=== PATIENT | male | born 1965 | race Caucasian/White ===

== ENCOUNTER 2024-12-07 08:25 | Emergency (ER) | payer MEDICAID ==
[~2024-12-07] VITALS: Ht 165.1 cm; Wt 86.0 kg
[2024-12-07 09:02] LABS: Urine Bacteria None Seen /hpf (None Seen)
[2024-12-07 09:18] LABS: Urine Blood 3+ /uL (Negative); Urine Budding Yeast MODERATE /hpf (None Seen); Urine Clarity Turbid (Clear); Urine Color Yellow (Yellow); Urine Mucus FEW (None Seen); Urine Protein, UAD 1+ (Negative); Urine Specific Gravity 1.028 (1.001-1.035); Urine Squamous Epithelial Cell FEW /hpf (<5); Urine Urobilinogen Normal (Negative); Urine WBC 17 /HPF (0-3); Urine pH 5.5 (5.0-9.0)
[2024-12-07 09:22] LABS: Basophils # (auto) 0.1 10 ^3/uL (0-0.2); Monocytes % (auto) 9.8 % (0.0-12.0); Nucleated Red Blood Cells % 0.1 %
--- NOTE | 2024-12-07 09:22 | DVH ---
Procedure: XY CHEST PORTABLE 12/07/2024 09:10 AM Indication: chest pain Comparison: None TECHNIQUE: XY CHEST PORTABLE FINDINGS: Medical devices: None. Cardiomediastinal: The heart is normal in size. Pulmonary vasculature is within normal limits. Athero sclerotic calcification of the aortic arch noted. Lungs: No focal pulmonary opacity is seen. The costophrenic angles are clear. No pneumothorax. Bones/soft tissues: No acute abnormality is noted. IMPRESSION: 1. No acute cardiopulmonary disease.
[2024-12-07 09:24] LABS: Basophils % (auto) 1.2 % (0.0-2.0); Eosinophils # (auto) 0.4 10 ^3/uL (0-0.8); Eosinophils % (auto) 3.9 % (0.0-7.0); Hematocrit 32.9 % (41.0-53.0); Hemoglobin 9.9 g/dL (13.5-17.5); Lymphocytes # (auto) 2.7 10 ^3/uL (0.4-5.4); Lymphocytes % (auto) 27.7 % (10.0-50.0); Mean Corpuscular Hemoglobin 17.6 pg (28.0-32.0); Mean Corpuscular Volume 58.5 fL (80.0-100.0); Monocytes # (auto) 0.9 10 ^3/uL (0-1.3); Neutrophils # (auto) 5.5 10 ^3/uL (1.6-8.6); Neutrophils % (auto) 57.4 % (37.0-80.0); Platelet Count (auto) 296 10^3/uL (140-450); Red Blood Cells 5.63 10^6/uL (4.5-5.90); Red Cell Distribution Width 19.7 % (11.8-14.3); White Blood Cell 9.6 10^3/uL (4.4-10.8)
--- NOTE | 2024-12-07 09:36 | ED.PDOC ---
History of Present Illness HPI Comments 59 y/o M, with a history of current umbilical hernia, Hepatitis C, and obesity, presents with c/o non-radiating left-upper and lower quadrant pain, headache, bilateral sclera yellowing, constipation, and generalized weakness. This in an ongoing issue acutely worse today. Patient is a poor historian and endorses on having pain for the past year and coming, today, due to additional onset of remaining symptoms, this morning, along with his friend, whom he claims to be a "nurse," recommended him on being checked out. He comments on laying on his left-side relieving pain and having no recent injuries, strenuous activities, spoiled food, travel, or other relevant information at time of assessment. Patient denies having any nausea, vomiting, fever, chills, or other associated symptoms or modifiers at this time. Chief Complaint: Abdominal Pain Time Seen by MD: 08:50 Primary Care Provider: DENIES Reviewed Notes: Nurses Notes, Medications, Allergies Allergies: Coded Allergies: NO KNOWN ALLERGIES (Unverified , 12/07/24) Information Source: Patient Mode of Arrival: Ambulatory Severity: Moderate Timing: Months Duration: Since onset Prehospital treatment: None Past Medical History PAST MEDICAL HISTORY: Liver (Hepatitis C) Past Medical History (Other): current umbilical hernia Surgical History: Denies all surgeries Family History Family History: Unknown Social History Smoker: Non-Smoker Alcohol: Denies ETOH Use Drugs: Denies Drug Use Lives In: Home EENTM: reports: others (bilateral eye sclera yellowing ) Gastrointestinal: reports: abdominal pain (left-sided ) Neurological: reports: headache, weakness All Other Systems: Reviewed and Negative (negative unless otherwise stated above or in HPI) Physical Exam General Appearance: No Apparent Distress, Obese HEENT: Normal ENT Inspection, Pharynx Normal, TMs Normal Neck: Full Range of Motion, Non-Tender, Normal, Normal Inspection Respiratory: Chest Non-Tender, Lungs Clear, No Accessory Muscle Use, No Respiratory Distress, Normal Breath Sounds Cardiovascular: No Edema, No JVD, No Murmur, No Gallop, Normal Peripheral Pulses, Regular Rate/Rhythm Breast Exam: Deferred Gastrointestinal: LLQ, LUQ, No Organomegaly, No Pulsatile Mass, Normal Bowel Sounds, Soft, Tenderness (left-sided upper and lower quadrant tenderness, no CVA percussion) Genitalia: Deferred Pelvic: Deferred Rectal: Deferred Extremities: No calf tenderness, Normal capillary refill, Normal inspection, Normal range of motion, Non-tender, No pedal edema Musculoskeletal : Apperance: Normal Neurologic: Alert, fryer line helper II-XII nml as Tested, No Motor Deficits, Normal Affect, Normal Mood, No Sensory Deficits Cerebellar Function: Normal Reflexes: Normal Skin: Dry, Normal Color, Warm Lymphatic: No Adenopathy Was a procedure done? Was a procedure done?: No EKG EKG : Pulse Rate (adult): 90 [place]: Normal Cardiac Rhythm: NSR Block: None Hypertrophy: None ST: Normal Differential Dx Considerations may include: constipation, viral syndrome, spoiled food, gastritis, gastroenteritis, electrolyte imbalance, acute abdomen X-Ray, Labs, Meds, VS Vital Signs Date Time Temp Pulse Resp B/P (MAP) Pulse Ox O2 Delivery O2 Flow Rate FiO2 12/07/24 09:36 90 12/07/24 08:45 90 12/07/24 08:38 97.4 89 18 159/105 (123) 100 Lab Test 12/07/24 09:11 12/07/24 08:30 Range/Units White Blood Count 9.6 4.4-10.8 10^3/uL Red Blood Count 5.63 4.5-5.90 10^6/uL Hemoglobin 9.9 L 13.5-17.5 g/dL Hematocrit 32.9 L 41.0-53.0 % Mean Corpuscular Volume 58.5 L 80.0-100.0 fL Mean Corpuscular Hemoglobin 17.6 L 28.0-32.0 pg Mean Corpuscular Hemoglobin Concent 30.0 L 32.0-36.0 g/dL Red Cell Distribution Width 19.7 H 11.8-14.3 % Platelet Count 296 140-450 10^3/uL Mean Platelet Volume 9.0 6.9-10.8 fL Neutrophils (%) (Auto) 57.4 37.0-80.0 % Lymphocytes (%) (Auto) 27.7 10.0-50.0 % Monocytes (%) (Auto) 9.8 0.0-12.0 % Eosinophils (%) (Auto) 3.9 0.0-7.0 % Basophils (%) (Auto) 1.2 0.0-2.0 % Neutrophils # (Auto) 5.5 1.6-8.6 10 ^3/uL Lymphocytes # (Auto) 2.7 0.4-5.4 10 ^3/uL Monocytes # (Auto) 0.9 0-1.3 10 ^3/uL Eosinophils # (Auto) 0.4 0-0.8 10 ^3/uL Basophils # (Auto) 0.1 0-0.2 10 ^3/uL Nucleated Red Blood Cells 0.1 % Platelet Estimate Pending Prothrombin Time 11.1 9.3-11.8 sec Prothrombin Time INR 1.05 0.9-1.15 Activated Partial Thromboplast Time 27.7 24.5-34.5 SEC D-Dimer, Quantitative 0.33 0.0-0.49 mg/L FEU Sodium Level Pending Potassium Level Pending Chloride Level Pending Carbon Dioxide Level Pending Anion Gap Pending Blood Urea Nitrogen Pending Creatinine Pending Glomerular Filtration Rate Calc Pending BUN/Creatinine Ratio Pending Serum Glucose Pending Calcium Level Pending Magnesium Level Pending Total Bilirubin Pending Aspartate Amino Transferase (AST) Pending Alanine Aminotransferase (ALT) Pending Alkaline Phosphatase Pending Troponin I High Sensitivity Pending B-Type Natriuretic Peptide Pending Total Protein Pending Albumin Pending Urine Color Yellow Yellow Urine Clarity Turbid H Clear Urine pH 5.5 5.0-9.0 Urine Specific [place] 1.028 1.001-1.035 Urine Protein 1+ H Negative Urine Ketones Negative Negative Urine Blood 3+ H Negative /uL Urine Nitrite Negative Negative Urine Bilirubin Negative Negative Urine Urobilinogen Normal Negative mg/dL Urine Leukocyte Esterase 1+ Negative /uL Urine RBC 128 0 - 3 /hpf Urine Microscopic WBC 17 H 0-3 /HPF Urine Squamous Epithelial Cells Few <5 /hpf Urine Bacteria None seen None Seen /hpf Urine Mucus Few None Seen Urine Yeast (Budding) Moderate None Seen /hpf Urine Glucose Normal Normal mg/dL [facility] [id number] [facility] [address] Ph: [phone] DIAGNOSTIC IMAGING Diagnostic Imaging Report : [id number] Signed PATIENT: COLTEN XAVIER ACCT: [id number] UNIT: [id number] : 1965 LOC: ER ROOM / BED: / AGE / SEX: 59 / M ADM STATUS: REG ER SERVICE 0906 ORDERING PHYSICIAN: GIOVANA ESCOBAR MD PROCEDURE(s): ABPL - CT AB PEL WO CON-NO ORAL OR IV REASON: left flank pain ORDER NUMBER(s): [id number], ACCESSION NUMBER(s): [id number] Exam: CT CT AB PEL WO CON-NO ORAL OR IV History: left flank pain Comparison Study: None available at time of dictation. Technique: Multidetector spiral CT of the abdomen and pelvis was performed from lung bases to pubic symphysis. Imaging was performed without intravenous contrast. Coronal and sagittal multiplanar reformats were obtained from the axial data set by the technologist. Radiation Dose : 1. Abdomen/Pelvis: CTDIvol 10.2 mGy, DLP 529.6 mGy*cm. Findings: Evaluation of vasculature and solid organs is limited due to lack of intravenous contrast use. Lung Bases: Lung bases are clear. Visualized portions of the heart and pericardium are unremarkable. Liver: The liver is normal in size. No focal lesions. Gallbladder and Biliary Tree: The gallbladder is unremarkable. No intrahepatic or extrahepatic biliary ductal dilatation. Spleen: Unremarkable Pancreas: The pancreas is grossly unremarkable. Adrenal Glands: Unremarkable Kidneys: There is a staghorn calculus in the left renal pelvis measuring 1.4 cm. There is no significant hydronephrosis. There is fat stranding surrounding the left renal pelvis. Punctate nonobstructive right intrarenal calculus. There is a right lower pole cyst measuring 2.8 cm. No right-sided hydronephrosis. Bilateral perinephric fat stranding. GI tract: The stomach is grossly normal in appearance. No evidence of small bowel wall thickening or abnormal dilatation to suggest bowel obstruction. S igmoid diverticulosis without acute diverticulitis. The appendix is not visualized, however no inflammatory changes in the right lower quadrant to suggest acute appendicitis. Peritoneum/mesentery/retroperitoneum. No evidence of free intraperitoneal air. No ascites. Lymph nodes: No evidence of suspicious lymphadenopathy. Abdominal Wall: Umbilical hernia containing nonobstructed bowel loops. Vasculature: The visualized abdominal aorta is normal in size and caliber. Evaluation of abdominal and pelvic vessels is limited due to lack of intravenous contrast. Urinary Bladder: Grossly unremarkable for degree of distention. Pelvic Organs: Unremarkable Musculoskeletal: No aggressive focal bony lesions, acute fractures or dislocation. Multilevel degenerative changes. IMPRESSION: 1. 1.5 cm staghorn calculus in the left renal pelvis. Mild fat stranding surrounding the left renal pelvis without significant hydronephrosis. Punctate nonobstructive right nephrolithiasis. 2. Umbilical hernia containing bowel loop without obstruction. 3. Sigmoid diverticulosis without acute diverticulitis. ATED BY: MICKY VARELA MD DICTATED DATE/TIME: 12/07/24939 SIGNED BY: MICKY VARELA MD SIGNED DATE/TIME: 12/07/24939 CC: [place] [address] Ph: [phone] DIAGNOSTIC IMAGING Diagnostic Imaging Report : [id number] Signed PATIENT: COLTEN XAVIER ACCT: [id number] UNIT: [id number] : 1965 LOC: ER ROOM / BED: / AGE / SEX: 59 / M ADM STATUS: REG ER SERVICE 8 ORDERING PHYSICIAN: GIOVANA ESCOBAR MD PROCEDURE(s): CXRP - CHEST PORTABLE REASON: chest pain ORDER NUMBER(s): [id number], ACCESSION NUMBER(s): [id number] Procedure: XY CHEST PORTABLE 12/07/2024 09:10 AM Indication: chest pain Comparison: None TECHNIQUE: XY CHEST PORTABLE FINDINGS: Medical devices: None. Cardiomediastinal: The heart is normal in size. Pulmonary vasculature is within normal limits. Atherosclerotic calcification of the aortic arch noted. Lungs: No focal pulmonary opacity is seen. The costophrenic angles are clear. No pneumothorax. Bones/soft tissues: No acute abnormality is noted. IMPRESSION: 1. No acute cardiopulmonary disease. ATED BY: ISELA ADAIR MD DICTATED DATE/TIME: 12/07/24919 SIGNED BY: ISELA ADAIR MD SIGNED DATE/TIME: 12/07/24919 CC: X-Ray, Labs, Meds, VS Comment This 59-year-old male presents secondary to acute on chronic left-sided abdominal/flank pain. He states he has had these episodes intermittently in the past that resolved when he lays on his left side. Today, however, the pain was worse than his baseline. As such, presented here. Here, he was noted to be anemic with hemoglobin 9.9. He had a urine that was positive for leukocyte esterase and blood suggestive of UTI. His CT showed a 1.5 cm staghorn calculi in the left side and a punctate kidney stone on the right side. Other diagnoses included diverticulosis and umbilical hernia with intestine but without obstruction. However, considering the patient was a staghorn calculi of 1.5 cm, the patient will require admission with emergent urological consultation. The patient was given 3.375 mg of Zosyn IV x1, Flomax, IV hydration and morphine. Time of 1ST Reevaluation: 09:20 Reevaluation 1ST: Unchanged Patient Education/Counseling: Diagnosis, Treatment Family Education/Counseling: No Family Present Departure 1 Departure Time of Disposition: 09:58 Impression: Primary Impression: Urinary tract infection Additional Impressions: Staghorn kidney stones Nephrolithiasis Left flank pain Diverticulosis Umbilical hernia without obstruction and without gangrene Disposition: ADMITTED INPATIENT Admit to: Med Surg Condition: Serious Critical Care Note Critical Care Time?: No Stability Stability form required: No Heart Score Heart Score: Heart Score Response (Comments) Value History N/A 0 EKG N/A 0 Age N/A 0 Risk Factors N/A 0 Troponin N/A 0 Total 0 I personally scribed for GIOVANA ESCOBAR MD ([email or web address]) on 12/07/24 at 09:36. Electronically submitted by Milton Goldsmith ([email or web address]). I personally scribed for GIOVANA ESCOBAR MD ([email or web address]) on 12/07/24 at 09:50. Electronically submitted by Milton Goldsmith [email or web address]). GIOVANA ESCOBAR MD Dec 07, 2024 09:36
[2024-12-07 09:41] LABS: INR 1.05 (0.9-1.15); Partial Thromboplastin Time 27.7 SEC (24.5-34.5); Prothrombin Time 11.1 sec (9.3-11.8)
--- NOTE | 2024-12-07 09:42 | DVH ---
Exam: CT CT AB PEL WO CON-NO ORAL OR IV History: left flank pain Comparison Study: None available at time of dictation. Technique: Multidetector spiral CT of the abdomen and pelvis was performed from lung bases to pubic s ymphysis. Imaging was performed without intravenous contrast. Coronal and sagittal multiplanar refor mats were obtained from the axial data set by the technologist. Radiation Dose : 1. Abdomen/Pelvis: CTDIvol 10.2 mGy, DLP 529.6 mGy*cm. Findings: Evaluation of vasculature and solid organs is limited due to lack of intravenous contrast use. Lung Bases: Lung bases are clear. Visualized portions of the heart and pericardium are unremarkable. Liver: The liver is normal in size. No focal lesions. Gallbladder and Biliary Tree: The gallbladder is unremarkable. No intrahepatic or extrahepatic bilia ry ductal dilatation. Spleen: Unremarkable Pancreas: The pancreas is grossly unremarkable. Adrenal Glands: Unremarkable Kidneys: There is a staghorn calculus in the left renal pelvis measuring 1.4 cm. There is no signific ant hydronephrosis. There is fat stranding surrounding the left renal pelvis. Punctate nonobstructiv e right intrarenal calculus. There is a right lower pole cyst measuring 2.8 cm. No right-sided hydron ephrosis. Bilateral perinephric fat stranding. GI tract: The stomach is grossly normal in appearance. No evidence of small bowel wall thickening or abnormal dilatation to suggest bowel obstruction. Sigmoid diverticulosis without acute diverticuliti s. The appendix is not visualized, however no inflammatory changes in the right lower quadrant to lugo ggest acute appendicitis. Peritoneum/mesentery/retroperitoneum. No evidence of free intraperitoneal air. No ascites. Lymph nodes: No evidence of suspicious lymphadenopathy. Abdominal Wall: Umbilical hernia containing nonobstructed bowel loops. Vasculature: The visualized abdominal aorta is normal in size and caliber. Evaluation of abdominal a nd pelvic vessels is limited due to lack of intravenous contrast. Urinary Bladder: Grossly unremarkable for degree of distention. Pelvic Organs: Unremarkable Musculoskeletal: No aggressive focal bony lesions, acute fractures or dislocation. Multilevel degener ative changes. IMPRESSION: 1. 1.5 cm staghorn calculus in the left renal pelvis. Mild fat stranding surrounding the left renal p salvador without significant hydronephrosis. Punctate nonobstructive right nephrolithiasis. 2. Umbilical hernia containing bowel loop without obstruction. 3. Sigmoid diverticulosis without acute diverticulitis.
[2024-12-07] MEDS: PIPERACILLIN-TAZOB 3.375GM 100 ML IV ONE (10:13)
[2024-12-07] MEDS: SODIUM CHLORIDE 0.9% 1,000 ML IV ONE (10:13)
[2024-12-07] MEDS: TAMSULOSIN HYDROCHLORIDE 0.4 MG CAP PO ONE (10:13)
--- NOTE | 2024-12-07 10:14 | DVHINCON2 ---
Date of service: Dec 07, 2024 Referring Physician ER Reason for Consultation 1.5 cm left staghorn calculus History of Present Illness Patient is evaluated in the emergency room for a left-sided flank pain with findings of 1.5 cm left mid renal pelvic stone. There is no significant hydronephrosis. Allergies: Coded Allergies: NO KNOWN ALLERGIES (Unverified , 12/07/24) Vital Signs Vital Signs Date Time Temp Pulse Resp B/P (MAP) Pulse Ox O2 Delivery O2 Flow Rate FiO2 12/07/24 09:36 90 12/07/24 08:38 97.4 18 159/105 (123) 100 Labs/Diagnostic Data Labs Test 12/07/24 10:03 12/07/24 09:11 12/07/24 08:30 Range/Units White Blood Count 9.6 4.4-10.8 10^3/uL Red Blood Count 5.63 4.5-5.90 10^6/uL Hemoglobin 9.9 L 13.5-17.5 g/dL Hematocrit 32.9 L 41.0-53.0 % Mean Corpuscular Volume 58.5 L 80.0-100.0 fL Mean Corpuscular Hemoglobin 17.6 L 28.0-32.0 pg Mean Corpuscular Hemoglobin Concent 30.0 L 32.0-36.0 g/dL Red Cell Distribution Width 19.7 H 11.8-14.3 % Platelet Count 296 140-450 10^3/uL Mean Platelet Volume 9.0 6.9-10.8 fL Neutrophils (%) (Auto) 57.4 37.0-80.0 % Lymphocytes (%) (Auto) 27.7 10.0-50.0 % Monocytes (%) (Auto) 9.8 0.0-12.0 % Eosinophils (%) (Auto) 3.9 0.0-7.0 % Basophils (%) (Auto) 1.2 0.0-2.0 % Neutrophils # (Auto) 5.5 1.6-8.6 10 ^3/uL Lymphocytes # (Auto) 2.7 0.4-5.4 10 ^3/uL Monocytes # (Auto) 0.9 0-1.3 10 ^3/uL Eosinophils # (Auto) 0.4 0-0.8 10 ^3/uL Basophils # (Auto) 0.1 0-0.2 10 ^3/uL Nucleated Red Blood Cells 0.1 % Prothrombin Time 11.1 9.3-11.8 sec Prothrombin Time INR 1.05 0.9-1.15 Activated Partial Thromboplast Time 27.7 24.5-34.5 SEC D-Dimer, Quantitative 0.33 0.0-0.49 mg/L FEU Urine Color Yellow Yellow Urine Clarity Turbid H Clear Urine pH 5.5 5.0-9.0 Urine Specific [place] 1.028 1.001-1.035 Urine Protein 1+ H Negative Urine Ketones Negative Negative Urine Blood 3+ H Negative /uL Urine Nitrite Negative Negative Urine Bilirubin Negative Negative Urine Urobilinogen Normal Negative mg/dL Urine Leukocyte Esterase 1+ Negative /uL Urine RBC 128 0 - 3 /hpf Urine Microscopic WBC 17 H 0-3 /HPF Urine Squamous Epithelial Cells Few <5 /hpf Urine Bacteria None seen None Seen /hpf Urine Mucus Few None Seen Urine Yeast (Budding) Moderate None Seen /hpf Urine Glucose Normal Normal mg/dL PATIENT: COLTEN XAVIER ACCT: [id number] UNIT: [id number] : 1965 LOC: ER ROOM / BED: / AGE / SEX: 59 / M ADM STATUS: REG ER SERVICE 0906 ORDERING PHYSICIAN: GIOVANA ESCOBAR MD PROCEDURE(s): ABPL - CT AB PEL WO CON-NO ORAL OR IV REASON: left flank pain ORDER NUMBER(s): [id number], ACCESSION NUMBER(s): [id number] Exam: CT CT AB PEL WO CON-NO ORAL OR IV History: left flank pain Comparison Study: None available at time of dictation. Technique: Multidetector spiral CT of the abdomen and pelvis was performed from lung bases to pubic symphysis. Imaging was performed without intravenous contrast. Coronal and sagittal multiplanar reformats were obtained from the axial data set by the technologist. Radiation Dose : 1. Abdomen/Pelvis: CTDIvol 10.2 mGy, DLP 529.6 mGy*cm. Findings: Evaluation of vasculature and solid organs is limited due to lack of intravenous contrast use. Lung Bases: Lung bases are clear. Visualized portions of the heart and pericardium are unremarkable. Liver: The liver is normal in size. No focal lesions. Gallbladder and Biliary Tree: The gallbladder is unremarkable. No intrahepatic or extrahepatic biliary ductal dilatation. Spleen: Unremarkable Pancreas: The pancreas is grossly unremarkable. Adrenal Glands: Unremarkable Kidneys: There is a staghorn calculus in the left renal pelvis measuring 1.4 cm. There is no significant hydronephrosis. There is fat stranding surrounding the left renal pelvis. Punctate nonobstructive right intrarenal calculus. There is a right lower pole cyst measuring 2.8 cm. No right-sided hydronephrosis. Bilateral perinephric fat stranding. GI tract: The stomach is grossly normal in appearance. No evidence of small bowel wall thickening or abnormal dilatation to suggest bowel obstruction. Sigmoid diverticulosis without acute diverticulitis. The appendix is not visualized, however no inflammatory changes in the right lower quadrant to suggest acute appendicitis. Peritoneum/mesentery/retroperitoneum. No evidence of free intraperitoneal air. No ascites. Lymph nodes: No evidence of suspicious lymphadenopathy. Abdominal Wall: Umbilical hernia containing nonobstructed bowel loops. Vasculature: The visualized abdominal aorta is normal in size and caliber. Evaluation of abdominal and pelvic vessels is limited due to lack of intravenous contrast. Urinary Bladder: Grossly unremarkable for degree of distention. Pelvic Organs: Unremarkable Musculoskeletal: No aggressive focal bony lesions, acute fractures or dislocation. Multilevel degenerative changes. IMPRESSION: 1. 1.5 cm staghorn calculus in the left renal pelvis. Mild fat stranding surrounding the left renal pelvis without significant hydronephrosis. Punctate nonobstructive right nephrolithiasis. 2. Umbilical hernia containing bowel loop without obstruction. 3. Sigmoid diverticulosis without acute diverticulitis. ATED BY: MICKY VARELA MD DICTATED DATE/TIME: 12/07/24939 SIGNED BY: MICKY VARELA MD SIGNED DATE/TIME: 12/07/24939 CC: Assessment 1.5 cm left renal pelvic stone Plan/Recommendation Outpatient lithotripsy with cystoscopy and stent placement would be appropriate Plan discussed with: FISH Alvarenga MD Dec 07, 2024 10:14
--- NOTE | 2024-12-07 10:22 | ECG ---
[facility] Test Date: 2024-12-07 Test Time: 08:45:30 Pat Name: COLTEN XAVIER Department: ER Room: Gender: M [employer]ace Operator: RUSTAM : 1965 Requested By: GIOVANA ESCOBAR Order Number: [id number] Reading MD: Wilbert Ybarra Measurements Intervals [place]echer Rate: 90 P: 58 TN: 153 QRS: 15 QRSD: 95 T: 51 QT: 353 QTc: 432 Interpretive Statements Sinus rhythm Electronically Signed On 12-07-2024 12:02:06 PST by Wilbert Ybarra Please click the below link to view image of tracing.
[2024-12-07 10:40] VITALS: PULSE 85; RESP 17; O2SAT 97
[2024-12-07 11:17] LABS: Hypochromia Moderate; Platelet Estimate Adequate
[2024-12-07 11:21] LABS: Alanine Aminotransferase 61 U/L (7-40); Albumin 4.6 g/dL (3.2-4.8); Alkaline Phosphatase 94 U/L (46-116); Anion Gap 7 (5-15); Aspartate Aminotransferase 45 U/L (13-40); BUN/Creatinine Ratio 18.4 (10.0-20.0); Blood Urea Nitrogen 14 mg/dL (9-23); Calcium 9.9 mg/dL (8.7-10.4); Carbon Dioxide 26 mmol/L (20-31); Chloride 106 mmol/L (98-107); Glucose 109 mg/dL (74-106); Potassium 3.9 mmol/L (3.5-5.1); Sodium 139 mmol/L (136-145)
[2024-12-07 11:22] LABS: Bilirubin, Total 0.6 mg/dL (0.2-1.0); Total Protein 8.5 g/dL (5.7-8.2)
[2024-12-07 12:00] VITALS: BP 137/90; PULSE 93; RESP 24; O2SAT 96
[2024-12-07] MEDS ORDERED: TAMS-35 PO (12:52)
[2024-12-07] MEDS ORDERED: HYDR-4902 PO (12:53)
== END 2024-12-07 13:49 | disposition home or self-care (01) ==
LOC: ER 08:25
DX: N39.0 Urinary tract infection, site not specified (principal); N20.0 Calculus of kidney; K57.30 Diverticulosis of large intestine without perforation or abscess without bleeding; K42.9 Umbilical hernia without obstruction or gangrene
CPT/HCPCS: 36415; 71045; 74176; 80053; 81001; 83735; 83880; 84484; 85025; 85379; 85610; 85730; 93005; 96365; 96366; 99285; J2543; J7030